=== PATIENT | male | born 1980 | race Caucasian/White ===

== ENCOUNTER → 2018-01-08 | Outpatient (CLI) | payer OTHER | LOC: BMCIMAGING 14:06 | PROVIDERS: ATTEND Physician Assistant | DX: S52.514A Nondisplaced fracture of right radial styloid process, initial encounter for closed fracture (principal) ==

== ENCOUNTER → 2018-01-21 | Outpatient (CLI) | payer OTHER | LOC: BMCIMAGING 10:16 | PROVIDERS: ATTEND Physician Assistant | DX: S52.511D Displaced fracture of right radial styloid process, subsequent encounter for closed fracture with routine healing (principal) ==

== ENCOUNTER → 2018-02-18 | Outpatient (CLI) | payer OTHER | LOC: BMCIMAGING 13:25 | PROVIDERS: ATTEND Physician Assistant | DX: S52.514D Nondisplaced fracture of right radial styloid process, subsequent encounter for closed fracture with routine healing (principal) ==